=== PATIENT | male | born 1950 | race Caucasian/White ===

== ENCOUNTER → 2017-04-05 | Outpatient (CLI) | payer BC ==
[~2017-04-05] MED LIST: MULT-351 PO; OXYC-292 PO; RIVA1TAB PO
== END | disposition home or self-care (01) ==
LOC: C.PATHSPEC 17:36
PROVIDERS: ATTEND Plastic Surgery
DX: C44.91 Basal cell carcinoma of skin, unspecified (principal)

== ENCOUNTER 2021-07-17 08:29 | Inpatient (IN) ==
--- NOTE | 2021-06-12 15:50 | PAT Medication Instructions ---
Medication Instructions Date of Service June 12, 2021 Home Medications cholecalciferol (vitamin D3) 50 mcg (2,000 unit) capsule (Vitamin D3) 2,000 unit PO QPM multivitamin (Multiple Vitamins) 1 tab PO QPM ascorbic acid (vitamin C) 1,000 mg tablet (Vitamin C) 1 g PO QPM aspirin 81 mg tablet,delayed release 81 mg PO QAM rosuvastatin 5 mg tablet 5 mg PO 3XWK Continue as directed rosuvastatin 5 mg tablet 5 mg PO 3XWK ASK your prescriber and surgeon aspirin 81 mg tablet,delayed release 81 mg PO QAM Take evening before surgery cholecalciferol (vitamin D3) 50 mcg (2,000 unit) capsule (Vitamin D3) 2,000 unit PO QPM multivitamin (Multiple Vitamins) 1 tab PO QPM ascorbic acid (vitamin C) 1,000 mg tablet (Vitamin C) 1 g PO QPM OTHERWISE NOTHING TO EAT OR DRINK AFTER MIDNIGHT Other Notes If you have any questions please call us at [phone] or [phone] or [phone] or [phone]
--- NOTE | 2021-06-16 09:06 | Anesthesiology Consultation ---
Date of Service June 16, 2021 Assessment & Plan (1) Encounter for pre-operative examination: - COVID screening: Per assessment on 06/16: Travel screen negative, no known COVID-19 positive contacts or current COVID-19 related symptoms. Patient doyle jones. Surgeon arranging preop COVID testing. Awaiting results. - S/P I&D lumbar fusion (12/28/17): Grade 1 view with cricoid, MAC#3, ETT 8.0 at [facility], S/P L2-S1 decompression and fusion (12/14/17): Grade 1 view, MAC#3, ETT #8.0. Chart Review Chart Review: Acceptable Risk for Surgery and Patient seen in Pre Admission Testing Teaching & Discussion Pre-Anesthesia Teaching/Discussion Notes: Instructed NPO after midnight before surgery,except medications with 15 cc of water. Medication instructions provided according to the PAT guidelines. History Surgery Operation Date: 07/07/21 07:45 Proposed Procedures p T10-L2 Decompression and Fusion Spinal Cord Monitoring - Reinaldo Lockhart, Height/Weight Height: 5 ft 4 in Weight: 80.9 kg Allergies Allergy/AdvReac Type Severity Reaction Status Date / Time celecoxib Allergy Unknown Itchiness Verified 06/13/21 10:41 rofecoxib Allergy Unknown Unknown Verified 06/13/21 10:41 Sulfa (Sulfonamide Allergy Unknown Hives Verified 06/13/21 10:41 Antibiotics) adhesive AdvReac Unknown Skin Verified 06/13/21 10:41 irritation (with bandaids) Medications Home Medications Medication Instructions Recorded Confirmed Last Taken cholecalciferol (vitamin D3) 50 2,000 unit PO QPM 12/27/17 06/05/21 12/26/17 mcg (2,000 unit) capsule (Vitamin D3) multivitamin (Multiple Vitamins) 1 tab PO QPM tab 10/18/18 06/05/21 Unknown ascorbic acid (vitamin C) 1,000 mg 1 g PO QPM tab 02/29/20 06/05/21 Unknown tablet (Vitamin C) aspirin 81 mg tablet,delayed 81 mg PO QAM 06/05/21 06/05/21 Unknown release rosuvastatin 5 mg tablet 5 mg PO 3XWK 06/05/21 06/05/21 Unknown Past Medical History Medical History Borderline high cholesterol Chronic low back pain History of basal cell carcinoma History of kidney stones History of squamous cell carcinoma in situ of skin Hx of heartburn Rare Sepsis Hx staph infection s/p back surgery Spinal stenosis, lumbar region with neurogenic claudication Thoracic aortic aneurysm without rupture Under surveillance by vascular- Dr. Corona (dx 2018), stable on 2020 imaging per pt (echo 04/01/20 at 4.2cm) Exercise / Class Metabolic Activity II 4-5 Yardwork/Stairs/Walk up hill Past Family History Family History Unknown Skin cancer Mother Stroke syndrome Brother Prostate cancer Myocardial infarction Daughter Sister Family history of diabetes mellitus Alzheimer disease Myocardial infarction Brother Family history of diabetes mellitus Brother Family history of esophageal cancer Denies family history of Ovarian cancer Breast cancer Lung cancer Colorectal cancer Past Surgical History Surgical History History of appendectomy History of back surgery x2 (initial with hardware, 2nd r/t infection) I&D lumbar fusion (12/28/17): Grade 1 view with cricoid, MAC#3, ETT 8.0 at [facility] L2-S1 decompression and fusion (12/14/17). Grade 1 view, MAC#3, ETT #8.0. History of colonoscopy History of herniorrhaphy History of repair of rotator cuff Right History of total hip arthroplasty R/L Past Anesthesia History No Hx of Anesthesia Complications and No Family Hx of Anesthesia Complications History of PONV No Hx of PONV and No Hx of Motion Sickness Social History Smoking Status: Never smoker Do You Dip or Chew Tobacco: No (HX , YEARS AGO) Hx Alcohol Use: Yes Alcohol type: beer alcohol intake frequency: a few times a week Hx Substance Use: No substance use type: does not use Review of Systems Patient denies chest pain, shortness of breath, dyspnea on exertion, fever, chills, cough, wheezing, palpitations. Physical Exam Vital Signs VITALS BP 137/85 P 59 TEMP 98.2 SP02 97%RA RESP 16 PHYSICAL Full cervical extension range of motion. Full TMJ range of motion. TMD 4 finger breaths Mallampati Score 1 Dentition: intact, + several crowns Lungs: clear throughout to auscultation Cardiac: regular rate and rhythm, no murmurs noted Spine: normal Carotid arteries: negative bruit Extremities: no edema Lab Results Anesthesia Preop Results Results Anesthesia Widget: WBC 5.21 K/uL (4.8-10.8) 06/16/21 Hgb 13.5 g/dL (14.0-18.0) L 06/16/21 Hct 41.4 % (42-52) L 06/16/21 Plt 266 K/uL (130-400) 06/16/21 Na 141 mmol/L (136-145) 06/16/21 K 5.0 mmol/L (3.5-5.1) 06/16/21 Cl 109 mmol/L (98-107) H 06/16/21 CO2 29 mmol/L (21-32) 06/16/21 BUN 20 mg/dl (6-23) 06/16/21 Creat 0.85 mg/dl (0.6-1.4) 06/16/21 Glucose Level 98 mg/dl (70-99(Fasting)) 06/16/21 PT 10.5 Seconds (9.0-12.0) 06/16/21 PTT 26.5 Seconds (21.0-31.0) 06/16/21 INR 1.0 (0.9-1.1) 06/16/21 Urine Color Yellow 06/16/21 Urine Appearance Clear (Clear) 06/16/21 Urine pH 6.5 (4.5-7.5) 06/16/21 Urine Specific [place] 1.022 (1.000-1.030) 06/16/21 Urine Protein Negative (Negative) 06/16/21 Urine Glucose (UA) Negative (Negative) 06/16/21 Urine Ketones Negative (Negative) 06/16/21 Urine Blood Negative (Negative) 06/16/21 Urine Nitrite Negative (Negative) 06/16/21 Urine Bilirubin Negative (Negative) 06/16/21 Urine Urobilinogen Negative (Negative) 06/16/21 Urine Leukocyte Esterase Negative (Negative) 06/16/21 Blood Type O Positive 06/16/21 Antibody Screen NEGATIVE 06/16/21 Testing Electrocardiogram Date: 06/16/21 This bradycardia 51 bpm. Otherwise normal ECG. Chest X-Ray Date: 06/16/21 FINDINGS: No pneumothorax. No pleural effusions. There is a tortuous descending thoracic aorta, unchanged. The heart is normal in size. The lungs are clear. Partially visualized lumbar spinal fusion hardware is noted. IMPRESSION: No acute process. Echocardiogram Date: 04/01/20 EF 55-60%. No regional motion abnormalities. No LVH. No significant valvular disease. Mildly dilated ascendin.2 cm. Normal RVSP. Grade 1 diastolic dysfunction.
--- NOTE | 2021-06-16 10:22 | Communication Note ---
Date of Service: June 16, 2021 Patient recalled general questions on anesthesia and my colleague Komal was with another patient. He inquired if would be receiving general anesthesia as he did with previous lumbar surgery including subsequent I&D in 2018. He feels that need for second procedure and therefore length of time under anesthesia caused mild memory changes then reflects his PCP feels memory changes are normal age- related changes. Denies change since seeing PCP and has upcoming appointment this week. We discussed general anesthesia is method for spine surgeries and he verbalized understanding, denies any additional questions or concerns expressing will need surgery. He also inquired if we manage pain medication or the surgeon's office and I advised his surgeon's office will be managing his elvis- operative pain regimen. He denied any additional questions or concerns and verbalized understanding he can call PAT office if additional questions or concerns arise.
[~2021-07-17 08:29] MED LIST changes: +ACETAMINOPHEN 500 MG TAB PO SCH; +DEXAMETHASONE SOD INJ 4 MG/ML VIAL ONE; +GABAPENTIN 300 MG CAP PO SCH; +HYDROmorphone INJ 2 MG/ML SYR/VIAL ONE; +KETAMINE 50 MG/5 ML SYRINGE ONE; +LIDOCAINE 2% 2 ML VIAL/AMP(20MG/ML) INFIL ONE; +LR 15ML/HR IV SCH; +MIDAZOLAM HCL 1 MG/ML 2ML VIAL ONE; -MULT-351 PO; +ONDANSETRON INJ 2 MG/ML 2 ML VIAL ONE; -OXYC-292 PO; +PROPOFOL IV EMULSION 10 MG/ML 20 ML VIAL IV ONE; +REMIFENTANIL HCL 1 MG VIAL ONE; -RIVA1TAB PO; +ROCURONIUM BROMIDE 10 MG/ML 5 ML VIAL IV ONE; +SODIUM CHLORIDE 0.9% INJ 10 ML VIAL ONE; +SUCCINYLCHOLINE CHLORIDE 20 MG/ML 10 ML VIAL IV ONE; +ceFAZolin 2000MG 2,000 MG/15 ML SYR IV SCH; +fentaNYL citrate 100 MCG/2 ML VIAL ONE
[2021-07-17] MEDS ORDERED: ceFAZolin 330 MG/ML 1 GM VIAL ONE (08:56)
[2021-07-17] MEDS ORDERED: BUPIVACAINE/EPINEPHRINE 0.25% 1:200,000 30 ML VIAL ONE (08:56)
[2021-07-17] MEDS ORDERED: ATROPINE SULFATE 0.1 MG/ML 10ML SYR IV PRN (09:13)
[2021-07-17] MEDS ORDERED: HYDROmorphone INJ 1 MG/ML SYRINGE IV PRN ×2 (09:13→14:05)
[2021-07-17] MEDS ORDERED: LABETALOL HCL IV 5 MG/ML 20ML IV PRN (09:13)
[2021-07-17] MEDS ORDERED: ONDANSETRON INJ 2 MG/ML 2 ML VIAL IV PRN ×2 (09:13→14:05)
--- NOTE | 2021-07-17 09:16 | History & Physical Bridge Note ---
Date of Service July 17, 2021 History & Physical Bridge Note I have examined the patient, reviewed the History & Physical and in the interval since the performance of the History & Physical I have noted the following changes of clinical significance: no changes noted
--- NOTE | 2021-07-17 09:17 | History & Physical Report ---
Date of Service July 17, 2021 Assessment & Plan (1) Lumbar radiculopathy: Plan: T10-L2 decompression fusion History of Present Illness Chief Complaint: Back and right leg pain Primary Care Provider: Clarence Farooq MD This is a 71-year-old male well-known to me the presents with marked decline in status with back and right leg pain. Failing course of nonoperative care is here for surgical invention. Allergies Allergy/AdvReac Type Severity Reaction Status Date / Time celecoxib Allergy Unknown Itchiness Verified 07/17/21 08:57 rofecoxib Allergy Unknown Unknown Verified 07/17/21 08:57 Sulfa (Sulfonamide Allergy Unknown Hives Verified 07/17/21 08:57 Antibiotics) adhesive AdvReac Unknown Skin Verified 07/17/21 08:57 irritation (with bandaids) Home Medications Medication Instructions Recorded Confirmed Type cholecalciferol (vitamin D3) 50 2,000 unit PO QPM 12/27/17 07/17/21 History mcg (2,000 unit) capsule (Vitamin D3) multivitamin (Multiple Vitamins) 1 tab PO QPM tab 10/18/18 07/17/21 History ascorbic acid (vitamin C) 1,000 mg 1 g PO QPM tab 02/29/20 07/17/21 History tablet (Vitamin C) aspirin 81 mg tablet,delayed 81 mg PO QAM 06/05/21 07/17/21 History release rosuvastatin 5 mg tablet 5 mg PO 3XWK 06/05/21 07/17/21 History Past Med/Surg History Medical History Borderline high cholesterol Chronic low back pain History of basal cell carcinoma History of kidney stones History of squamous cell carcinoma in situ of skin Hx of heartburn Sepsis Spinal stenosis, lumbar region with neurogenic claudication Thoracic aortic aneurysm without rupture Surgical History History of appendectomy History of back surgery History of colonoscopy History of herniorrhaphy History of repair of rotator cuff History of total hip arthroplasty Family History Unknown Skin cancer Mother Stroke syndrome Brother Prostate cancer Myocardial infarction Daughter Sister Family history of diabetes mellitus Alzheimer disease Myocardial infarction Brother Family history of diabetes mellitus Brother Family history of esophageal cancer Denies family history of Ovarian cancer Breast cancer Lung cancer Colorectal cancer Social History Smoking Status: Never smoker Second Hand Exposure: No; Do You Dip or Chew Tobacco: No (HX , YEARS AGO); Hx Alcohol Use: Yes Alcohol type: beer Hx Substance Use: No Preferred Language: [place] Sudanese Communication Ability: Effective Visual Impairment: Diminished Surgical Appliances Salesperson Required: No Beliefs That Will Affect Care: None marital status: Current Living Situation: Spouse current occupational status: retired How many Children do You have: 3 Other Information That Helps Us Care for You: Yes (HAS WALK IN SHOWER, HIGH TOILETS) Feels Safe at Home: Yes Childhood Exposure to Second-Hand Smoke: No caffeine: Yes Dental Care, Regularly: Yes Physical Activity Frequency: 5-6 Times per Week Seatbelt Use: always Sunscreen Use: Yes Assistive Devices: Glasses Physical Exam Physical Exam: Patient is alert and oriented Heart regular rhythm Lungs clear
[2021-07-17] MEDS ORDERED: FLOSEAL HEMOSTATIC MATRIX 10ML TOP ONE (10:38)
[2021-07-17] MEDS ORDERED: ONDANSETRON INJ 2 MG/ML 2 ML VIAL ONE (11:55)
[2021-07-17] MEDS ORDERED: GLYCOPYRROLATE 0.2 MG/ML VIAL ONE ×2 (11:57)
[2021-07-17] MEDS ORDERED: NEOSTIGMINE METHYLSULFATE 1 MG/ML 10ML VIAL ONE (11:57)
[2021-07-17] MEDS ORDERED: ROCURONIUM BROMIDE 10 MG/ML 5 ML VIAL IV ONE ×5 (12:02→12:03)
--- NOTE | 2021-07-17 12:09 | Operative Report ---
Post Operative Report Pre & Post Diagnosis Operation Date: 07/17/21 10:35 Pre-Op Diagnosis: Lumbar Radiculopathy Post-Op Diagnosis: Lumbar Radiculopathy I identified the patient and participated in the time-out.: Yes Procedure Operation Date: 07/17/21 10:35 Actual Procedures Lumbar decompression bilateral medial facetectomies foraminotomies T12-L1 L1-L2. #2 posterior spinal fusion T10-L2. #3 placement posterior instrumentation T11- L1 with connectors. #4 interbody fusion L1-L2. #5 placement of peek cage 8 x 26 mm at L1-2. #6 placement locally harvested morselized autograft in the posterior gutters per #7 placement use collagen sponge, master graft in the posterior lateral gutters and I factor interbody space. Surgeon Reinaldo Lockhart, Beamer Helper Anna Boyer Estimated Blood Loss 350 Findings Consistent with Post-Op Diagnosis Specimens None Indications This is a 71-year-old male known to me the presents with above-mentioned diagnosis after failed course of nonoperative care is here for surgical invention. Description of Procedure Patient was met with identified informed consent obtained. Patient was then taken to the operative suite underwent an patient placed in a prone position Niraj table on top of the [place] frame. All bony prominences well-padded eyes inspected to ensure no external pressure placed upon the. This point the thoracolumbar spine was prepped and draped in a sterile fashion. Sharp dissection with the assistance of Bovie cautery was performed down to and exposing the lamina and transverse processes of [id number] L1 and instrumentation at L3-L3. I then performed a complete laminectomy L1 partial laminectomy of T12 including bilateral medial facetectomies and foraminotomies addressing severe spinal stenosis. Pedicle screws then placed in T11 T12-L1 bilaterally with assistance of fluoroscopy and by way of connectors to the prev ious jace rods were placed. By way of a transforaminal portion radically discectomy of L1-L2 was performed endplates curetted to subcortically bone and a 8 x 26 mm peek cage filled with I factor tapped position. The rods and locked in final position. The transverse processes of [id number] L1 and L2 burred to subcortical bleeding bone. Infuse collagen sponge master graft lobe autograft was placed in the posterior gutters. 15 round RASHAD drain inserted. The incision was then closed with 1 Vicryl in the fascia 2-0 Vicryl subcutaneously and 4 Monocryl for final skin closure. Steri-Strip sterile dressings placed. Patient waken taken PACU stable condition. Please note spinal cord monitoring was utilized at the procedure no changes noted. Lastly Anna Boyer was present throughout the entire surgery and while the patient positioning complex portions of the surgery and final skin closure. I attest to the content of the Intraoperative Record and any orders documented therein. Any exceptions are noted below.
--- NOTE | 2021-07-17 13:17 | Fluoroscopy Report ---
FL lumbar spine 2-3V CLINICAL HISTORY: T10-L2 DFI COMPARISON STUDY: Lumbar spine MRI December 27, 2017. FLUOROSCOPY TIME: 34 seconds. FLUOROSCOPIC IMAGES: 2 FINDINGS: Exact localization is not possible given partial visualization of the lumbar spine. Images demonstrate a multilevel posterior decompression and bilateral pedicle screw fusion with one level di scectomy. Interbody spacer is within the anterior aspect of the disc space. Visualized portions of th e hardware are intact. No unexpected radiopaque foreign bodies. IMPRESSION: Fluoroscopy provided during multilevel posterior decompression and fusion. ACT 112: Negative or not required by law. Electronically signed by: Jose Cohen M.D. 07/17/2021 1:16 PM
--- NOTE | 2021-07-17 13:46 | Anesthesiology Progress Note ---
Date of Service July 17, 2021 Anesthesia Post Procedure Vital Signs Vital Signs: Temp Pulse Pulse Resp BP BP Pulse Ox 07/17/21 13:15 62 17 118/50 L 95 07/17/21 13:05 36.5 C 58 L 18 105/62 96 07/17/21 12:55 62 16 106/58 L 96 07/17/21 12:45 62 14 112/61 100 07/17/21 12:35 71 18 115/78 100 07/17/21 12:28 36.9 C 76 12 107/60 98 07/17/21 09:02 36.8 C 54 L 22 149/92 H 97 Pain Intensity Lower Back: Pain Intensity: 3 Transfer of Care Handoff Completed per policy Notes Mental Status: alert / awake / arousable Patient Amnestic to Procedure: Yes Nausea / Vomiting: adequately controlled Pain: adequately controlled Airway Patency, RR, SpO2: stable & adequate BP & HR: stable & adequate Hydration State: stable & adequate Anesthetic Complications: no major complications apparent
[2021-07-17] MEDS ORDERED: LORazepam 0.5 MG TAB PO PRN (14:05)
[2021-07-17] MEDS ORDERED: ALUMINUM/MAGNESIUM SUSP 30 ML UDC PO PRN (14:05)
[2021-07-17] MEDS ORDERED: FAMOTIDINE 20 MG TAB PO PRN (14:05)
[2021-07-17] MEDS ORDERED: PROMETHAZINE HCL 12.5 MG in SODIUM CHLORIDE 0.9% 50 ML IV PRN (14:05)
[2021-07-17] MEDS ORDERED: MAGNESIUM HYDROXIDE SUSP 30 ML UDC PO PRN (14:05)
[2021-07-17] MEDS ORDERED: ACETAMINOPHEN 1,000 MG/100 ML VIAL IV PRN (14:05)
[2021-07-17] MEDS ORDERED: SOD PHOSPHATE/SOD BIPHOSPHATE ENEMA 132 ML BTL PR PRN (14:05)
[2021-07-17] MEDS ORDERED: NALOXONE HCL 0.4 MG/1 ML VIAL/CARP IV PRN (14:05)
[2021-07-17] MEDS ORDERED: DO NOT ADMINISTER FLU VACCINE PRN (14:05)
[2021-07-17] MEDS ORDERED: diphenhydrAMINE Capsule 25 MG CAP PO PRN (14:05)
[2021-07-17] MEDS ORDERED: SODIUM CHLORIDE 0.9% 1000ML 1,000 ML IV SCH (14:05)
[2021-07-17] MEDS ORDERED: METOCLOPRAMIDE HCL INJ 5 MG/ML 2 ML VIAL IV PRN (14:05)
[2021-07-17] MEDS ORDERED: HYDROmorphone INJ 0.5 MG/0.5 ML SYR IV PRN (14:05)
[2021-07-17] MEDS ORDERED: ONDANSETRON 4 MG OD TAB PO PRN (14:05)
[2021-07-17] MEDS ORDERED: LORazepam 2 MG/1 ML VIAL IV PRN (14:05)
[2021-07-17] MEDS ORDERED: DO NOT ADMINISTER PNEUMOCOCCAL VACCINE PRN (14:05)
[2021-07-17] MEDS ORDERED: bisacodyL 10 MG SUPP PR PRN (14:05)
[2021-07-17] MEDS ORDERED: oxyCODONE HCL IR 5 MG TAB (IMMEDIATE RELEASE) PO PRN (14:05)
[2021-07-17] MEDS ORDERED: hydrOXYzine HCl 25 MG TAB PO PRN (14:05)
[2021-07-17] MEDS: ACETAMINOPHEN 500 MG TAB PO PRN (16:38)
--- NOTE | 2021-07-17 16:52 | Hospitalist Consultation ---
Date of Consultation July 17, 2021 Assessment & Plan (1) Status post lumbar spine surgery for decompression of spinal cord: S/p T10 - L2 spinal decompression & fusion with Dr. Lockhart on 07/17. EBL was 350 mL per op note. - No acute surgical concerns on my exam/interview. Post-op care per primary team. - Reached out to Dr. Lockhart re: ASA 81 mg usage as he is on it for primary prevention and could easily pause, but he is ok continuing it. (2) Dyslipidemia: - Continue statin (3) DVT prophylaxis: Early ambulation & discharge per primary team Given medical stability, Hospital Medicine team will sign off. Please re-consult with any questions or concerns. Thank you for letting us assist in the care of this patient! History of Present Illness Attending Physician: Reinaldo Lockhart, DO History of Present Illness 71yo M w/ no real PMH who presents as a routine consult after a T10 - L2 spinal fusion. The patient had been having ongoing back pain which was resistant to conservative measures. I saw the patient post-op, and he is doing well. Pain is quite mild at this time. He feels surgery went well. He has no major pain at this time. Allergies Allergy/AdvReac Type Severity Reaction Status Date / Time celecoxib Allergy Unknown Itchiness Verified 07/17/21 08:57 rofecoxib Allergy Unknown Unknown Verified 07/17/21 08:57 Sulfa (Sulfonamide Allergy Unknown Hives Verified 07/17/21 08:57 Antibiotics) adhesive AdvReac Unknown Skin Verified 07/17/21 08:57 irritation (with bandaids) Home Medications Medication Instructions Recorded Confirmed Type cholecalciferol (vitamin D3) 50 2,000 unit PO QPM 12/27/17 07/17/21 History mcg (2,000 unit) capsule (Vitamin D3) multivitamin (Multiple Vitamins) 1 tab PO QPM tab 10/18/18 07/17/21 History ascorbic acid (vitamin C) 1,000 mg 1 g PO QPM tab 02/29/20 07/17/21 History tablet (Vitamin C) aspirin 81 mg tablet,delayed 81 mg PO QAM 06/05/21 07/17/21 History release rosuvastatin 5 mg tablet 5 mg PO 3XWK 06/05/21 07/17/21 History Patient History Medical History Borderline high cholesterol Chronic low back pain History of basal cell carcinoma History of kidney stones History of squamous cell carcinoma in situ of skin Hx of heartburn Rare Sepsis Hx staph infection s/p back surgery Spinal stenosis, lumbar region with neurogenic claudication Thoracic aortic aneurysm without rupture Under surveillance by vascular- Dr. Corona (dx 2018), stable on 2020 imaging per pt (echo 04/01/20 at 4.2cm) Surgical History History of appendectomy History of back surgery x2 (initial with hardware, 2nd r/t infection) I&D lumbar fusion (12/28/17): Grade 1 view with cricoid, MAC#3, ETT 8.0 at [facility] L2-S1 decompression and fusion (12/14/17). Grade 1 view, MAC#3, ETT #8.0. History of colonoscopy History of herniorrhaphy History of repair of rotator cuff Right History of total hip arthroplasty R/L Family History Unknown Skin cancer Mother Stroke syndrome Brother Prostate cancer Myocardial infarction Daughter Sister Family history of diabetes mellitus Alzheimer disease Myocardial infarction Brother Family history of diabetes mellitus Brother Family history of esophageal cancer Denies family history of Ovarian cancer Breast cancer Lung cancer Colorectal cancer Social History Smoking Status: Never smoker Second Hand Exposure: No; Do You Dip or Chew Tobacco: No (HX , YEARS AGO); Hx Alcohol Use: Yes Alcohol type: beer Hx Substance Use: No Preferred Language: Luxembourger Communication Ability: Effective Visual Impairment: Diminished Brush Clearer Surveying Required: No Beliefs That Will Affect Care: None marital status: Current Living Situation: Spouse current occupational status: retired How many Children do You have: 3 Other Information That Helps Us Care for You: Yes (HAS WALK IN SHOWER, HIGH TOILETS) Feels Safe at Home: Yes Childhood Exposure to Second-Hand Smoke: No caffeine: Yes Dental Care, Regularly: Yes Physical Activity Frequency: 5-6 Times per Week Seatbelt Use: always Sunscreen Use: Yes Assistive Devices: Glasses Review of Systems Review of Systems: All systems reviewed & are unremarkable except as noted in HPI & below Physical Exam Constitutional: WD/WN, vitals as above Eyes: EOM intact bilaterally; no conjunctival abnormality ENMT: external ear and nose normal, oropharynx normal Neck: trachea midline, no thyromegaly normal visual inspection Respiratory: normal respiratory effort, lungs clear to auscultation no respiratory distress Cardiovascular: RRR, no murmur, no edema Gastrointestinal (Abdomen): Inspection/Auscultation: abdomen normal to inspection; abdomen not distended Musculoskeletal: no cyanosis or clubbing, extremities motor strength 5/5 Spine: + limited thoraco-lumbar ROM (Due to bandaging & restrictions) Skin: no rashes, warm and dry Neurologic: moves all extremities and awake Psychiatric: Orientation: alert, oriented to person and cooperative Results & Data Results & Data ([facility]) Vital Signs (Past 12 Hours) Vital Signs Temp Pulse Pulse Pulse Resp BP BP 07/17/21 16:07 36.4 C L 57 L 16 110/70 07/17/21 15:26 36.4 C L 52 L 16 113/74 07/17/21 14:40 36.7 C 66 16 108/65 07/17/21 14:15 36.4 C L 63 19 102/66 07/17/21 14:00 55 L 18 107/64 07/17/21 13:45 59 L 17 92/53 L 07/17/21 13:35 55 L 17 97/60 L 07/17/21 13:25 52 L 17 112/54 L 07/17/21 13:15 62 17 118/50 L 07/17/21 13:05 36.5 C 58 L 18 105/62 07/17/21 12:55 62 16 106/58 L 07/17/21 12:45 62 14 112/61 07/17/21 12:35 71 18 115/78 07/17/21 12:28 36.9 C 76 12 107/60 07/17/21 09:02 36.8 C 54 L 22 149/92 H Pulse Ox 07/17/21 16:07 94 07/17/21 15:26 91 07/17/21 14:40 93 07/17/21 14:15 97 07/17/21 14:00 98 07/17/21 13:45 95 07/17/21 13:35 94 04/21/22 13:25 95 07/17/21 13:15 95 07/17/21 13:05 96 07/17/21 12:55 96 07/17/21 12:45 100 07/17/21 12:35 100 07/17/21 12:28 98 07/17/21 09:02 97 PG Care Time/CCT Total # of Minutes Spent Total Time Spent with Patient: Total time spent is greater than 50% in coordination of care (as documented) at patient's floor/unit and/or counseling patient: Coding Level of Care Code 63835 Inpt Consult Level 3 Diagnoses Status post lumbar spine surgery for decompression of spinal cord Z98.890 Dyslipidemia E78.5 DVT prophylaxis Z29.9
[2021-07-17] MEDS: ceFAZolin 2000MG 2,000 MG/15 ML SYR IV SCH (18:41)
[2021-07-17] MEDS: MULTIVITAMIN TAB PO SCH (21:15)
[2021-07-17] MEDS: ASCORBIC ACID 500 MG TAB PO SCH (21:16)
[2021-07-17] MEDS: CHOLECALCIFEROL 1,000 UNITS 25 MCG TAB PO SCH (21:16)
[2021-07-17] MEDS: DOCUSATE SODIUM/SENNA 50/8.6MG TAB PO SCH (21:17)
[2021-07-18] MEDS: ACETAMINOPHEN 500 MG TAB PO PRN ×2 (00:43→11:32)
[2021-07-18] MEDS: ceFAZolin 2000MG 2,000 MG/15 ML SYR IV SCH (03:07)
[2021-07-18] MEDS: POLYETHYLENE (MIRALAX) 17 GM PACK PO SCH ×4 (06:02→23:22)
[2021-07-18] MEDS: traMADol HCL 50 MG TABLET PO PRN ×3 (06:08→23:21)
[2021-07-18 06:24] LABS: Eosinophils # (auto) 0.01 K/uL (0-0.5); Eosinophils % (auto) 0.1 %; Hematocrit (blood only) 31.2 % (42-52); Hemoglobin 10.1 g/dL (14.0-18.0); Immature Granulocytes # (auto) 0.01 K/uL (0.00-0.02); Immature Granulocytes % (auto) 0.1 %; Lymphocytes # (auto) 0.83 K/uL (1.2-3.4); Lymphocytes % (auto) 8.2 %; Mean Corpuscular Hemoglobin 31.1 pg (25-34); Mean Corpuscular Hgb Conc 32.4 g/dL (32-36); Mean Platelet Volume 9.6 fL (7.4-10.4); Monocytes # (auto) 1.24 K/uL (0.11-0.59); Monocytes % (auto) 12.2 %; Neutrophils # (auto) 8.07 K/uL (1.4-6.5); Neutrophils % (auto) 79.4 %; Platelet Count 230 K/uL (130-400); RDW Coefficient of Variation 13.7 % (11.5-14.5); Red Blood Count 3.25 M/uL (4.7-6.1); White Blood Count 10.16 K/uL (4.8-10.8)
[2021-07-18 06:50] LABS: BUN Creatinine Ratio 21.3 (10-20); Calcium 8.1 mg/dl (8.5-10.1); Est GFR (Non-African American) 85.4 ml/min; Potassium 4.1 mmol/L (3.5-5.1)
[2021-07-18] MEDS: ASPIRIN 81 MG ECTAB PO SCH (08:21)
[2021-07-18] MEDS: dexAMETHasone 6 MG in SYRINGE 0 ML IV SCH (08:22)
--- NOTE | 2021-07-18 08:34 | Hospitalist Progress Note ---
Date of Service July 18, 2021 Assessment & Plan (1) Status post lumbar spine surgery for decompression of spinal cord: Plan: S/p T10 - L2 spinal decompression & fusion with Dr. Lockhart on 07/17. EBL was 350 mL per op note. - No acute surgical concerns on my exam/interview. Post-op care per primary team. - Reached out to Dr. Lockhart re: ASA 81 mg usage as he is on it for primary prevention and could easily pause, but he is ok continuing it. (2) Dyslipidemia: Plan: - Continue statin (3) DVT prophylaxis: Plan: Early ambulation & discharge per primary team Given medical stability, Hospital Medicine team will sign off. Please re-consult with any questions or concerns. Thank you for letting us assist in the care of this patient! (4) Acute blood loss anemia: Plan: stable not in range of transfusion Admission and Anticipated Discharge Date Admission Date: July 17, 2021 Results & Data Results & Data ([facility]) Vital Signs (Past 12 Hours) Vital Signs Temp Pulse Pulse Resp BP BP Pulse Ox 07/18/21 07:47 97.9 F 58 L 18 122/70 94 07/18/21 06:04 54 L 109/70 07/18/21 03:03 97.7 F 59 L 16 88/52 L 103/62 97 07/17/21 23:00 97.7 F 56 L 20 109/66 94 PG Care Time/CCT Total # of Minutes Spent Total Time Spent with Patient: Total time spent is greater than 50% in coordination of care (as documented) at patient's floor/unit and/or counseling patient: Coding Level of Care Code None Diagnoses Status post lumbar spine surgery for decompression of spinal cord Z98.890 Dyslipidemia E78.5 DVT prophylaxis Z29.9 Acute blood loss anemia D62
[2021-07-18] MEDS ORDERED: ROSUVASTATIN CALCIUM 5 MG TAB PO SCH (09:00)
--- NOTE | 2021-07-18 12:11 | Orthopedic Progress Note ---
Date of Service July 18, 2021 Assessment & Plan (1) Lumbar radiculopathy: Plan: At this point we will continue physical therapy monitor his RASHAD output hopefully discharge home later this weekend. Admission and Anticipated Discharge Date Admission Date: July 17, 2021 Subjective Patient's back pain is controlled leg symptoms markedly improved Physical Exam Physical Exam: On exam he is ambulating the halls. Is good strength testing. Peers comfortable. Results & Data ([facility]) Vital Signs (Past 12 Hours) Vital Signs Temp Pulse Pulse Resp BP BP Pulse Ox 07/18/21 07:47 36.6 C 58 L 18 122/70 94 07/18/21 06:04 54 L 109/70 07/18/21 03:03 36.5 C 59 L 16 88/52 L 103/62 97
[2021-07-18] MEDS: ASCORBIC ACID 500 MG TAB PO SCH (21:10)
[2021-07-18] MEDS: CHOLECALCIFEROL 1,000 UNITS 25 MCG TAB PO SCH (21:10)
[2021-07-18] MEDS: DOCUSATE SODIUM/SENNA 50/8.6MG TAB PO SCH (21:11)
[2021-07-18] MEDS: MULTIVITAMIN TAB PO SCH (21:11)
[2021-07-19] MEDS: POLYETHYLENE (MIRALAX) 17 GM PACK PO SCH (05:31)
[2021-07-19] MEDS: traMADol HCL 50 MG TABLET PO PRN ×2 (07:43→18:32)
--- NOTE | 2021-07-19 08:05 | Orthopedic Progress Note ---
Date of Service July 19, 2021 Assessment & Plan (1) Status post lumbar spine surgery for decompression of spinal cord: Plan: Patient is stable postop day #2. We will continue with GI DVT prophylaxis and mobilization efforts we will monitor his RASHAD drain in and hopefully get him home tomorrow. Admission and Anticipated Discharge Date Admission Date: July 17, 2021 Subjective Patient seen bedside in room 305. He appears to be comfortable this morning. His pain is well controlled. He is not currently having any radicular complaints. He is tolerating p.o. He denies any other numbness, tingling, paresthesias. Physical Exam Physical Exam: On exam he stands and moves with the use of a walker his calves are supple nontender his abdomen supple nontender. The dressing is clean dry and intact. His gait is stable. Strength and sensation are grossly intact. Results & Data ([facility]) Vital Signs (Past 12 Hours) Vital Signs Temp Pulse Pulse Resp BP Pulse Ox 07/19/21 07:11 36.6 C 55 L 18 114/74 95 07/18/21 22:51 36.5 C 59 L 18 129/74 96
[2021-07-19] MEDS: dexAMETHasone 6 MG in SYRINGE 0 ML IV SCH (08:51)
[2021-07-19] MEDS: ASPIRIN 81 MG ECTAB PO SCH (08:51)
[2021-07-19] MEDS: CHOLECALCIFEROL 1,000 UNITS 25 MCG TAB PO SCH (20:54)
[2021-07-19] MEDS: MULTIVITAMIN TAB PO SCH (20:54)
[2021-07-19] MEDS: ASCORBIC ACID 500 MG TAB PO SCH (20:54)
[2021-07-19] MEDS: DOCUSATE SODIUM/SENNA 50/8.6MG TAB PO SCH (20:54)
--- NOTE | 2021-07-20 07:54 | Discharge Summary ---
Date of Service July 20, 2021 Admission HPI Per Admitting Provider This is a 71-year-old male well-known to me the presents with marked decline in status with back and right leg pain. Failing course of nonoperative care is here for surgical invention. Discharge Data Consultations 07/17/21 14:05 Consult Hospitalist Routine Procedures Performed Operation Date: 07/17/21 10:35 Actual Procedures p T10-L2 Decompression and Fusion, Spinal Cord Monitoring(Not Applicable) - Reinaldo Lockhart DO Hospital Course (1) Lumbar radiculopathy: Patient is a pleasant 71-year-old male with history physical examination radiographic images consistent with the above-mentioned diagnosis. For this reason is brought to the operating room on 07/17/2021 and undergone a thoracolumbar decompression and fusion from T10-L2. He left the operating room with a RASHAD drain Weir in place and is transferred PACU in stable condition. He was then brought to the orthopedic floor is placed on GI DVT prophylaxis. He was seen by physical therapy postop day 1 for ambulation and gait training. Throughout his hospital course his abdomen remains soft nontender his calves remain supple and nontender as well. And on postop day #3 he was deemed safe for home discharge were going to maintain his drain on discharge and remove it in the office on Wednesday. He is to avoid lifting anything heavier than 5 to 7 pounds he should not perform any full bending at the waist. He will have the dressing change prior to discharge
[2021-07-20] MEDS: ACETAMINOPHEN 500 MG TAB PO PRN (08:16)
[2021-07-20] MEDS: ASPIRIN 81 MG ECTAB PO SCH (08:17)
[2021-07-20] MEDS: dexAMETHasone 6 MG in SYRINGE 0 ML IV SCH (08:17)
[2021-07-20] MEDS: traMADol HCL 50 MG TABLET PO PRN (09:52)
== END 2021-07-20 13:52 | disposition home or self-care (01) | DRG 454 ==
LOC: ASU 08:29 → PACUINP 12:12 → 3E 14:46